=== PATIENT | male | born 1950 | race Two or more races ===

== ENCOUNTER 2022-07-15 15:20 | Outpatient (REF) | payer MEDICARE, MEDICAID, SELFPAY ==
[2022-07-15 16:43] LABS: Erythrocyte Sedimentation Rate 21 MM/HR (0-15)
[2022-07-16 17:01] LABS: Lyme Abs Screen <0.90 index
== END 2022-07-15 15:21 | disposition home or self-care (01) ==
LOC: HO.LAB 15:20
PROVIDERS: Visit Provider Psychiatry & Neurology Neurology
DX: R51.9 Headache, unspecified (principal)
CPT/HCPCS: 36415; 82550; 85652; 86617; 86618